=== PATIENT | female | born 1970 | race Caucasian/White ===

== ENCOUNTER 2019-04-07 01:25 | Emergency (ER) | payer OTHER ==
[~2019-04-07] VITALS: Ht 170.2 cm; Wt 105.0 kg
[2019-04-07 05:05] VITALS: BP 154/87
== END 2019-04-07 05:15 | disposition home or self-care (01) ==
LOC: ER 02:18
DX: M79.89 Other specified soft tissue disorders (principal); M25.462 Effusion, left knee; Z90.49 Acquired absence of other specified parts of digestive tract; Z85.9 Personal history of malignant neoplasm, unspecified; Z98.890 Other specified postprocedural states
CPT/HCPCS: 99283